=== PATIENT | male | born 1970 | race Caucasian/White ===

== ENCOUNTER 2018-02-19 12:10 | Inpatient (IN) | payer MEDICAID ==
[2018-02-19] MEDS ORDERED: Vancomycin 1 GM 1 GM/250 ML BAG IV STA (13:08)
[2018-02-19] MEDS ORDERED: Cefepime IV 1 gm in Dextrose 1 GM/50 ML BAG IVPB STA (13:09)
[2018-02-19 13:35] LABS: BASO % 0.4 % (0.0-2.0); EOS % 0.7 % (0.0-4.0); LYMPH # 1.1 K/uL (1.0-4.3); LYMPH % 19.3 % (20.0-40.0); MEAN CORPUSCULAR HEMOGLOBIN 27.1 pg (27.0-31.0); MEAN CORPUSCULAR HGB CONC 32.6 g/dL (33.0-37.0); MEAN PLATELET VOLUME 8.6 fL (7.2-11.7); MONO # 0.8 K/uL (0.0-0.8); MONO % 13.4 % (0.0-10.0); NEUT # 3.9 K/uL (1.8-7.0); NEUT % 66.2 % (50.0-75.0); RBC 3.32 Mil/uL (4.40-5.90); WHITE BLOOD COUNT 5.9 K/uL (4.8-10.8)
--- NOTE | 2018-02-19 13:36 | C.PDOC ---
History Of Present Illness Patient presents to ED c/o B/L LEs swelling for > 1 week, as well as left foot wound/pain for approx 1 week. He admits to occasional SOB, particularly when he lays down at night. He was seen by new PMD, Dr. Deann Busch, 1 week ago and started on Lasix PO without significant relief of edema. He admits to chills. Patient denies chest pain, abdominal pain, nausea/vomiting/diarrhea. PMHx of DM II, HTN, CHF. Time Seen by Provider: 02/19/18 12:34 Chief Complaint (Nursing): Shortness Of Breath History Per: Patient History/Exam Limitations: no limitations Onset/Duration Of Symptoms: Days (1 week ) Current Symptoms Are (Timing): Still Present Current Respiratory Medications: See Home Med List Severity: Moderate Past Medical History Reviewed: Historical Data, Nursing Documentation, Vital Signs Vital Signs: Last Vital Signs Temp 98.1 F 02/20/18 07:00 Pulse 67 02/20/18 07:00 Resp 20 02/20/18 07:00 BP 150/73 02/20/18 07:00 Pulse Ox 97 02/20/18 07:00 - Medical History PMH: CHF, Diabetes, HTN Family History: States: No Known Family Hx - Social History Hx Alcohol Use: No Hx Substance Use: No Review Of Systems Constitutional: Positive for: Chills Cardiovascular: Positive for: Edema (B/L LEs). Negative for: Chest Pain, Palpitations Respiratory: Positive for: Shortness of Breath. Negative for: Cough Gastrointestinal: Negative for: Nausea, Vomiting, Abdominal Pain, Diarrhea Musculoskeletal: Positive for: Foot Pain (left foot pain, redness, swelling ) Physical Exam - Physical Exam Appears: Well, Non-toxic, No Acute Distress Skin: Other (see extremity exam) Eye(s): bilateral: Normal Inspection Oral Mucosa: Moist Cardiovascular: Rhythm Regular Respiratory: Normal Breath Sounds, No Rales, No Rhonchi, No Wheezing Gastrointestinal/Abdominal: Normal Exam, Bowel Sounds, Soft, No Tenderness Extremity: Pedal Edema (+2 pitting edema B/L LEs), Capillary Refill (< 2 sec all digits ), Other (medial aspect left foot (at base of first metatarsal), approx 2-3cm area of swelling/abscess with surrounding erythema) Extremity: Bilateral: Normal ROM Pulses: Left Dorsalis Pedis: Normal, Right Dorsalis Pedis: Normal Neurological/Psych: Oriented x3, Normal Sensation ED Course And Treatment - Laboratory Results Result Diagrams: 02/19/18 13:30 02/19/18 13:30 ECG: Interpreted By Me, Viewed By Me (NSR 72 bpm, left axis deviation, QTc 479ms , T wave inversion I, V5, V6, no acute ST changes) ECG Interpretation: Abnormal O2 Sat by Pulse Oximetry: 95 (RA) Pulse Ox Interpretation: Normal - Radiology CXR: Interpreted by Me, Viewed By Me CXR Interpretation: Yes: Other (mild pulmonary congestion) - Other Rad left foot xray X-Ray: Interpreted by Me, Viewed By Me (soft tissue abscess?, no fx, no periosteal changes) Progress Note: Blood work, CXR, Foot Xray ordered and reviewed. Patient given IV Vancomycin and IV Cefepime. Podaitry resident spoken with, will come and evaluate patient. Patient has mild SOB only with lying flat - will give only low dose Lasix since Bun/Cr also elevated. 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 Disposition - Disposition Disposition: HOSPITALIZED Disposition Time: 14:59 Condition: STABLE - Clinical Impression Clinical Impression: CHF exacerbation, Cellulitis of left foot, Foot abscess, left, Renal insufficiency Decision To Admit - Pt Status Changed To: Hospital Disposition Of: Inpatient - Admit Certification Admit to Inpatient:: After my assessment, the patient will require hospitalization for at least two midnights. This is because of the severity of symptoms shown, intensity of services needed, and/or the medical risk in this patient being treated as an outpatient. - InPatient: Physician Admission Certification: I certify that this patient requires 2 or more midnights of care for the following reason:: see notes - . Bed Request Type: Telemetry Admitting Physician: Wendi Brambila Patient Diagnosis: Acute exacerbation of CHF (congestive heart failure), Cellulitis of left foot, Abscess of left foot, Renal insufficiency
[2018-02-19 13:42] LABS: VENOUS BLOOD GAS BASE EXCESS -3.1 mmol/L (0.0-2.0); VENOUS BLOOD GAS PCO2 35 mmHg (40-60); VENOUS BLOOD GAS PO2 28 mm/Hg (30-55); VENOUS BLOOD PH 7.39 (7.32-7.43)
[2018-02-19 13:42] LABS: INR 1.7; PROTHROMBIN TIME 18.1 SECONDS (9.7-12.2)
[2018-02-19 13:47] LABS: ALB/GLOB RATIO 0.9 (1.0-2.1); ALBUMIN 3.6 g/dL (3.5-5.0); CALCIUM 8.4 mg/dl (8.6-10.4)
[2018-02-19 13:59] LABS: CK-MB 1.74 ng/mL (0.0-3.38); TROPONIN I 0.038 ng/mL (0.00-0.120)
--- NOTE | 2018-02-19 14:04 | RAD ---
PROCEDURE: CHEST RADIOGRAPH, 1 VIEW HISTORY: SOB, EDEMA COMPARISON: None available. FINDINGS: LUNGS: Mild pulmonary venous congestive changes. PLEURA: No pneumothorax or pleural fluid seen. CARDIOVASCULAR: Normal. OSSEOUS STRUCTURES: No significant abnormalities. VISUALIZED UPPER ABDOMEN: Normal. OTHER FINDINGS: None. IMPRESSION: Mild pulmonary venous congestive changes.
[2018-02-19] MEDS ORDERED: Vancomycin 1 gm/NS 200 ml 1 GM/200 ML BAG IVPB STA (14:06)
[2018-02-19] MEDS ORDERED: Vancomycin 1 gm/NS 200 ml 1 GM/200 ML BAG IVPB SCH (14:15)
--- NOTE | 2018-02-19 14:28 | CP.PCM.CON ---
History of Present Illness - History of Present Illness History of Present Illness: Podiatry Consult Note - Dr. Montaño 48 year old male patient PMHx CHF, DM2, HTN, hx CVA seen and examined in ED concerning left foot wound. Patient hemodynamically stable and NAD. Patient states states approximately 1 week ago, he developed a blister on the side of his left great toe joint. Patient reports a history of water retention; of note patient was started on Lasix PO without significant relief of edema. Patient states the blister has increased in size over the past few days, and relates associated fever and chills, which led him to present to ED. Patient also complains of bilateral lower extremity numbness. Patient denies prior treatment. Admits to occasional SOB. Denies N/V/D/CP/dizziness. PMHx: CHF, DM2, HTN, CVA PSH: none FH: PR (father @ 41 years old), DM2 (brother and sister) SH: unemployed; 1 beer/day; 4-5 cigarettes/day for 20 years; no illicit drug use Review of Systems - Review of Systems All systems: reviewed and no additional remarkable complaints except (as per HPI ) Past Patient History - Past Social History Smoking Status: Light Smoker < 10 Cigarettes Daily - CARDIAC Hx Congestive Heart Failure: Yes Hx Hypertension: Yes - NEUROLOGICAL HX Cerebrovascular Accident: Yes - ENDOCRINE/METABOLIC Hx Diabetes Mellitus Type 2: Yes - PSYCHIATRIC Hx Substance Use: No - SURGICAL HISTORY Hx Surgeries: No - ANESTHESIA Hx Anesthesia: Yes Hx Anesthesia Reactions: No Meds Allergies/Adverse Reactions: Allergies Allergy/AdvReac Type Severity Reaction Status Date / Time No Known Allergies Allergy Unverified 02/19/18 12:30 - Medications Medications: Current Medications Vancomycin/Sodium Chloride (Vancomycin 1 Gm/Ns 200 Ml) 1 gm in 200 mls @ 166.667 mls/hr IVPB STAT STA PRN Reason: Protocol Stop: 02/19/18 15:17 Physical Exam - Constitutional Appears: Well, Non-toxic, No Acute Distress - Extremities Exam Additional comments: VASC: DP pulses palpable 1/4 b/l. L PT nonpalpable secondary to edema. R PT palpable 2/4. CFT <3 seconds to all digits x10. Temperature gradient warm to warm b/l; no increase in warmth to areas of erythema L foot. Nonpitting edema present to left foot at areas of erythema. +3 pitting edema to bilateral LE. NEURO: Gross sensation diminished bilaterally. DERM: RLE=No open lesions noted. Severe xerosis noted to plantar foot. LLE=Bullae noted to plantarmedial aspect of left 1st met head measuring approximately 5 x 6cm with hyperkeratotic tissue plantarly; erythema noted periwound extending proximally into midfoot; fluctuance present at bullae; malodor present. No open lesions noted. No extension into subcutaneous tissue. Severe xerosis noted to plantar foot. ORTHO: No pain on palpation noted. Muscle strenth 5/5 for all dorsiflexors, plantarflexors, inverters, and everters b/l. - Neurological Exam Neurological exam: Alert, Oriented x3 - Psychiatric Exam Psychiatric exam: Normal Affect, Normal Mood Results - Vital Signs Recent Vital Signs: Last Vital Signs Temp 99.7 F H 02/19/18 12:26 Pulse 71 02/19/18 13:35 Resp 21 02/19/18 13:35 BP 138/62 02/19/18 13:35 Pulse Ox 95 02/19/18 13:55 - Labs Result Diagrams: 02/19/18 13:30 02/19/18 13:30 Labs: Laboratory Results - last 24 hr 02/19/18 02/19/18 02/19/18 13:30 13:30 13:30 WBC 5.9 RBC 3.32 L Hgb 9.0 L Hct 27.6 L MCV 83.0 MCH 27.1 MCHC 32.6 L RDW 16.0 H Plt Count 103 L MPV 8.6 Neut % (Auto) 66.2 Lymph % (Auto) 19.3 L Hancock % (Auto) 13.4 H Eos % (Auto) 0.7 Baso % (Auto) 0.4 Neut # (Auto) 3.9 Lymph # (Auto) 1.1 Hancock # (Auto) 0.8 Eos # (Auto) 0.0 Baso # (Auto) 0.0 PT 18.1 H INR 1.7 APTT 38 H pO2 VBG pH VBG pCO2 VBG HCO3 VBG Total CO2 VBG O2 Sat (Calc) VBG Base Excess VBG Potassium Glucose Lactate Sodium 128 L Potassium 4.3 Chloride 97 L Carbon Dioxide 19 L Anion Gap 16 BUN 25 H Creatinine 1.6 H Est GFR ( Amer) 57 Est GFR (Non-Af Amer) 47 POC Glucose (mg/dL) Random Glucose 110 Calcium 8.4 L Total Bilirubin 0.9 AST 41 ALT 29 Alkaline Phosphatase 78 Total Creatine Kinase 368 H CK-MB (Mass) 1.74 Troponin I 0.0380 NT-Pro-B Natriuret Pep 6790 H Total Protein 7.5 Albumin 3.6 Globulin 3.8 Albumin/Globulin Ratio 0.9 L Venous Blood Potassium 02/19/18 02/19/18 13:34 13:38 WBC RBC Hgb Hct MCV MCH MCHC RDW Plt Count MPV Neut % (Auto) Lymph % (Auto) Hancock % (Auto) Eos % (Auto) Baso % (Auto) Neut # (Auto) Lymph # (Auto) Hancock # (Auto) Eos # (Auto) Baso # (Auto) PT INR APTT pO2 28 L VBG pH 7.39 VBG pCO2 35 L VBG HCO3 21.3 VBG Total CO2 22.3 VBG O2 Sat (Calc) 58.0 VBG Base Excess -3.1 L VBG Potassium 4.0 Glucose 104 Lactate 1.3 Sodium 127.0 L Potassium Chloride 100.0 Carbon Dioxide Anion Gap BUN Creatinine Est GFR ( Amer) Est GFR (Non-Af Amer) POC Glucose (mg/dL) 110 Random Glucose Calcium Total Bilirubin AST ALT Alkaline Phosphatase Total Creatine Kinase CK-MB (Mass) Troponin I NT-Pro-B Natriuret Pep Total Protein Albumin Globulin Albumin/Globulin Ratio Venous Blood Potassium 4.0 Assessment & Plan - Assessment and Plan (Free Text) Assessment: 48M PMHx CHF, DM2, HTN, hx CVA with left foot bullae + cellulitis Plan: Patient seen and evaluated in ED Discussed with attending, Dr. Montaño Tmax 99.7, WBC 5.9 f/u ESR Left foot XR reviewed: Bullae noted to medial aspect of 1st MPJ with no cortical destruction noted; awaiting final report Bedside I&D performed w/o incident; left foot wound culture obtained Left foot dressed with betadine, DSD Vancomycin/Cefepime given in ED Patient to be admitted Podiatry will follow
--- NOTE | 2018-02-19 18:40 | RAD ---
PROCEDURE: Left Foot Radiographs. HISTORY: L FOOT CELLULITIS/ABSCESS R/O OSTEO COMPARISON: No prior study available for comparison. FINDINGS: BONES: Normal. No fracture. JOINTS: Normal. SOFT TISSUES: The current study reveals what appears represent semi lunar shaped lucency presumably representing an abscess collection within the medial soft tissues at adjacent to the head of the 1st metatarsal/1st MTP joint. . There appears to be subjacent soft tissue swelling is well. No definitive destructive changes. Recommend followup MRI however poorly ostium myelitis is suspected clinically. OTHER FINDINGS: Vascular calcifications. IMPRESSION: Findings consistent with abscess collection within the medial soft tissues at the level of the head of the 1st metatarsal/MTP joint.
[2018-02-20 01:00] VITALS: RESP 20
[2018-02-20] MEDS ORDERED: Oxycodone/Acetaminophen 5/325 mg Tab PO PRN (08:09)
--- NOTE | 2018-02-20 09:06 | CP.PCM.PN ---
Subjective - Date & Time of Evaluation Date of Evaluation: 02/20/18 Time of Evaluation: 09:03 - Subjective Subjective: Lower extremity focused exam: VASC: DP pulses palpable 1/4 B/L. Left PT nonpalpable secondary to edema. Right PT palpable 2/4. CFT <3 seconds to all digits x10. Temperature gradient warm to warm b/l; no increase in warmth to areas of erythema L foot. Nonpitting edema present to left foot at areas of erythema. +2 pitting edema to bilateral lower extremities. NEURO: Gross sensation diminished B/L. DERM: RLE- No open lesions noted. Severe xerosis noted to plantar foot. LLE- Bullae noted to plantarmedial aspect of left 1st met head measuring approximately 5 x 6cm with hyperkeratotic tissue plantarly; erythema noted periwound extending proximally into midfoot. Mild fluctuance present at bullae. Mild malodor is noted. No open lesions noted. No extension into subcutaneous tissues. Moderate-severe xerosis noted to plantar foot. ORTHO: No pain on palpation noted. Muscle strength 5/5 for all dorsiflexors, plantarflexors, inverters, and everters B/L Objective - Vital Signs/Intake and Output Vital Signs (last 24 hours): Temp Pulse Resp BP Pulse Ox 98.1 F 67 20 150/73 97 02/20/18 07:00 02/20/18 07:00 02/20/18 07:00 02/20/18 07:00 02/20/18 07:00 Intake and Output: 02/20/18 02/20/18 06:59 18:59 Output Total 950 Balance -950 - Medications Medications: Current Medications Amlodipine Besylate (Norvasc) 5 mg PO DAILY [facility] Furosemide (Lasix) 20 mg PO DAILY [facility] Glyburide (Micronase) 2.5 mg PO DAILY [facility] Piperacillin Sod/Tazobactam Sod (Zosyn 2.25 Gm Iv Premix) 2.25 gm in 50 mls @ 100 mls/hr IVPB Q8 [facility] PRN Reason: Protocol Vancomycin HCl 1 gm/ Sodium (Chloride) 250 mls @ 166.7 mls/hr IVPB Q24H [facility] PRN Reason: Protocol Insulin Aspart (Novolog) 0 unit SC ACHS [facility] PRN Reason: Protocol Lisinopril (Zestril) 10 mg PO DAILY [facility] Oxycodone/Acetaminophen (Percocet 5/325 Mg Tab) 1 tab PO Q4H PRN PRN Reason: Pain, Mild (1-3) Stop: 02/23/18 08:10 Rosuvastatin Calcium (Crestor) 20 mg PO DAILY [facility] Warfarin Sodium (Coumadin) 3 mg PO DAILY [facility] - Labs Labs: 02/19/18 13:30 02/19/18 13:30 PT 18.1 SECONDS (9.7-12.2) H 02/19/18 13:30 INR 1.7 02/19/18 13:30 APTT 38 SECONDS (21-34) H 02/19/18 13:30 Assessment and Plan - Assessment and Plan (Free Text) Assessment: 48 y/o diabetic male patient with left foot medial 1st metatarsal abscess with cellulitis Plan: Patient seen and evaluated with attending, Dr. Montaño ESR 55 Left foot XR reviewed: findings consistent with abscess collection in medial soft tissues at level of 1st met head/1st MPJ Left foot abscess site cleaned with saline and dressed with betadine, DSD Will excisionally debride borders of abscess site tomorrow at bedside as there is likely underlying ulcer formation Rx MRI of LLE to further evaluate abscess Continue IV abx and pain mgt per medicine team Podiatry will continue to follow while in house
[2018-02-20] MEDS ORDERED: ROSUVASTATIN 20MG PO SCH (10:00)
[2018-02-20] MEDS: Vancomycin 1 gm/NS 200 ml 1 GM/200 ML BAG IVPB SCH (10:55)
--- NOTE | 2018-02-20 12:15 | HP ---
HISTORY OF PRESENT ILLNESS: A 48-year-old male, history of diabetes for 12 years, history of diabetic foot. The patient needs glyburide 10 mg daily. The patient had in the past, in the left foot. The patient was found to have diabetic foot. PHYSICAL EXAMINATION: GENERAL: The patient is awake, alert and oriented. VITAL SIGNS: Temperature 98, pulse 90. HEENT: Within normal limits. NECK: Supple. CHEST: Symmetrical. HEART: Regular. ABDOMEN: Soft. EXTREMITIES: There is diabetic foot in the left foot. IMPRESSION: The patient suffers from left foot. The patient given IV antibiotics, supportive care, podiatry consult. Wendi Tadeo MD
[2018-02-20] MEDS: (Novolog) Insulin Aspart, Recombinant 100 u/ml 10 ml vial SC SCH ×3 (12:18→21:51)
[2018-02-20] MEDS: Piperacill/Tazo 2.25gm in Dex 2.25 GM/50 ML BAG IVPB SCH ×2 (13:02→21:12)
--- NOTE | 2018-02-20 14:20 | CP.PCM.CON ---
History of Present Illness - History of Present Illness History of Present Illness: 48 year old male admitted with left foot wound / cellulitis / bullous lesion plantar area . Patient states states approximately 1 week ago, he developed a blister on the side of his left great toe joint. Patient reports a history of water retentionPatient states the blister has increased in size over the past few days, and relates associated fever and chills, which led him to present to ED. Patient also complains of bilateral lower extremity numbness. Patient denies prior treatment. Admits to occasional SOB. Denies N/V/D/CP/ dizziness. PMHx: CHF, DM2, HTN, CVA left weakness PSH: none FH: MD (father @ 41 years old), DM2 (brother and sister) SH: unemployed; 1 beer/day; 4-5 cigarettes/day for 20 years; no illicit drug use Review of Systems - Review of Systems All systems: reviewed and no additional remarkable complaints except - Constitutional Constitutional: As Per HPI - EENT Eyes: absent: As Per HPI, Blind Spots, Blurred Vision, Change in Vision, Decreased Night Vision, Diplopia, Discharge, Dry Eye, Exophthalmos, Floaters, Irritation, Itchy Eyes, Loss of Peripheral Vision, Pain, Photophobia, Requires Corrective Lenses, Sees Flashes, Spots in Vision, Tunnel Vision, Other Visual Disturbances, Loss of Vision, Other Ears: absent: As Per HPI, Decreased Hearing, Ear Discharge, Ear Pain, Tinnitus, Abnormal Hearing, Disequilibrium, Dizziness, Other Nose/Mouth/Throat: absent: As Per HPI, Epistaxis, Nasal Congestion, Nasal Discharge, Nasal Obstruction, Nasal Trauma, Nose Pain, Post Nasal Drip, Sinus Pain, Sinus Pressure, Bleeding Gums, Change in Voice, Dental Pain, Dry Mouth, Dysphagia, Halitosis, Hoarsness, Lip Swelling, Mouth Lesions, Mouth Pain, Odynophagia, Sore Throat, Throat Swelling, Tongue Swelling, Facial Pain, Neck Pain, Neck Mass, Other - Cardiovascular Cardiovascular: As Per HPI - Respiratory Respiratory: absent: As Per HPI, Cough, Dyspnea, Hemoptysis, Dyspnea on Exertion , Wheezing, Snoring, Stridor, Pain on Inspiration, Chest Congestion, Excessive Mucous Production, Change in Mucous Color, Pain with Coughing, Other - Gastrointestinal Gastrointestinal: absent: As Per HPI, Abdominal Pain, Belching, Bloating, Change in Bowel Habits, Change in Stool Character, Coffee Ground Emesis, Constipation, Cramping, Diarrhea, Dyspepsia, Dysphagia, Early Satiety, Excessive Flatus, Fecal Incontinence, Heartburn, Hematemesis, Hematochezia, Loose Stools, Melena, Nausea, Odynophagia, Temesmus, Vomiting, Other - Genitourinary Genitourinary: absent: As Per HPI, Change in Urinary Stream, Difficulty Urinating, Dysuria, Flank Pain, Hematuria, Pyuria, Nocturia, Urinary Incontinence, Urinary Frequency, Urinary Hesitance, Urinary Urgency, Voiding Freq/Small Amts, Freq UTI, Hx Renal/Bladder Calculi, Hx /Renal Surgery, Bladder Distension, Other - Musculoskeletal Musculoskeletal: As Per HPI - Integumentary Integumentary: As Per HPI, Skin Pain, Wounds - Neurological Neurological: As Per HPI, Sensory Deficit - Psychiatric Psychiatric: absent: As Per HPI, Abnormal Sleep Pattern, Anhedonia, Anxiety, Auditory Hallucinations, Behavioral Changes, Change in Appetite, Change in Libido, Confusion, Depression, Difficulty Concentrating, Hallucinations, Homicidal Ideation, Hopelessness, Irritability, Memory Loss, Mood Swings, Panic Attacks, Paranoia, Suicidal Ideation, Visual Hallucinations, Tactile Hallucinations, Other - Hematologic/Lymphatic Hematologic: absent: As Per HPI, Easy Bleeding, Easy Bruising, Lymphadenopathy, Other Past Patient History - Past Medical History & Family History Past Medical History?: Yes - Past Social History Smoking Status: Current Some Days Smoker - CARDIAC Hx Congestive Heart Failure: Yes Hx Hypertension: Yes - NEUROLOGICAL HX Cerebrovascular Accident: Yes - ENDOCRINE/METABOLIC Hx Diabetes Mellitus Type 2: Yes - MUSCULOSKELETAL/RHEUMATOLOGICAL Hx Falls: No - PSYCHIATRIC Hx Substance Use: No - SURGICAL HISTORY Hx Surgeries: No - ANESTHESIA Hx Anesthesia: Yes Hx Anesthesia Reactions: No Meds Allergies/Adverse Reactions: Allergies Allergy/AdvReac Type Severity Reaction Status Date / Time No Known Allergies Allergy Unverified 02/19/18 12:30 - Medications Medications: Current Medications Amlodipine Besylate (Norvasc) 5 mg PO DAILY [facility] Last Admin: 02/20/18 10:16 Dose: 5 mg Furosemide (Lasix) 20 mg PO DAILY [facility] Last Admin: 02/20/18 10:15 Dose: 20 mg Glyburide (Micronase) 2.5 mg PO DAILY [facility] Last Admin: 02/20/18 11:04 Dose: 2.5 mg Piperacillin Sod/Tazobactam Sod (Zosyn 2.25 Gm Iv Premix) 2.25 gm in 50 mls @ 100 mls/hr IVPB Q8 [facility] PRN Reason: Protocol Last Admin: 02/20/18 13:02 Dose: 100 mls/hr Vancomycin/Sodium Chloride (Vancomycin 1 Gm/Ns 200 Ml) 1 gm in 200 mls @ 133.333 mls/hr IVPB Q24H [facility] PRN Reason: Protocol Last Admin: 02/20/18 10:55 Dose: 133.333 mls/hr Insulin Aspart (Novolog) 0 unit SC ACHS [facility] PRN Reason: Protocol Last Admin: 02/20/18 12:18 Dose: Not Given Lisinopril (Zestril) 10 mg PO DAILY [facility] Last Admin: 02/20/18 10:17 Dose: 10 mg Oxycodone/Acetaminophen (Percocet 5/325 Mg Tab) 1 tab PO Q4H PRN PRN Reason: Pain, Mild (1-3) Stop: 02/23/18 08:10 Rosuvastatin Calcium (Crestor) 20 mg PO HS [facility] Warfarin Sodium (Coumadin) 3 mg PO DAILY@1800 [facility] Stop: 02/20/18 18:01 Physical Exam - Constitutional Appears: Non-toxic, Chronically Ill - Head Exam Head Exam: ATRAUMATIC, NORMAL INSPECTION, NORMOCEPHALIC - Eye Exam Eye Exam: EOMI, PERRL. absent: Scleral icterus - ENT Exam ENT Exam: Mucous Membranes Dry, Normal External Ear Exam - Neck Exam Neck exam: Negative for: Thyromegaly - Respiratory Exam Respiratory Exam: Decreased Breath Sounds, Clear to Auscultation Bilateral - Cardiovascular Exam Cardiovascular Exam: REGULAR RHYTHM, +S1, +S2 - GI/Abdominal Exam GI & Abdominal Exam: Diminished Bowel Sounds, Soft. absent: Tenderness - Rectal Exam Rectal Exam: Deferred - Exam Exam: NORMAL INSPECTION - Extremities Exam Extremities exam: Positive for: pedal edema Additional comments: Lower extremity focused exam: VASC: DP pulses palpable 1/4 B/L. Left PT nonpalpable secondary to edema. Right PT palpable 2/4. CFT <3 seconds to all digits x10. Temperature gradient warm to warm b/l; no increase in warmth to areas of erythema L foot. Nonpitting edema present to left foot at areas of erythema. +2 pitting edema to bilateral lower extremities. NEURO: Gross sensation diminished B/L. DERM: RLE- No open lesions noted. Severe xerosis noted to plantar foot. LLE- Bullae noted to plantarmedial aspect of left 1st met head measuring approximately 5 x 6cm with hyperkeratotic tissue plantarly; erythema noted periwound extending proximally into midfoot. Mild fluctuance present at bullae. Mild malodor is noted. No open lesions noted. No extension into subcutaneous tissues. Moderate-severe xerosis noted to plantar foot. ORTHO: No pain on palpation noted. Muscle strength 5/5 for all dorsiflexors, plantarflexors, inverters, and everters B/L - Back Exam Back exam: absent: CVA tenderness (L), CVA tenderness (R) - Neurological Exam Neurological exam: Alert, CN II-XII Intact, Oriented x3, Reflexes Normal - Psychiatric Exam Psychiatric exam: Normal Mood - Skin Skin Exam: Dry, Intact Results - Vital Signs Recent Vital Signs: Last Vital Signs Temp 98.1 F 02/20/18 07:00 Pulse 67 02/20/18 07:00 Resp 20 02/20/18 07:00 BP 150/76 02/20/18 10:15 Pulse Ox 95 02/20/18 10:18 - Labs Result Diagrams: 02/19/18 13:30 02/19/18 13:30 Labs: Laboratory Results - last 24 hr 02/19/18 02/19/18 02/20/18 13:30 21:14 06:42 WBC 5.9 RBC 3.32 L Hgb 9.0 L Hct 27.6 L MCV 83.0 MCH 27.1 MCHC 32.6 L RDW 16.0 H Plt Count 103 L MPV 8.6 Neut % (Auto) 66.2 Lymph % (Auto) 19.3 L Harmon % (Auto) 13.4 H Eos % (Auto) 0.7 Baso % (Auto) 0.4 Neut # (Auto) 3.9 Lymph # (Auto) 1.1 Harmon # (Auto) 0.8 Eos # (Auto) 0.0 Baso # (Auto) 0.0 Differential Comment ESR 55 H POC Glucose (mg/dL) 183 H 118 H 02/20/18 11:36 WBC RBC Hgb Hct MCV MCH MCHC RDW Plt Count MPV Neut % (Auto) Lymph % (Auto) Harmon % (Auto) Eos % (Auto) Baso % (Auto) Neut # (Auto) Lymph # (Auto) Harmon # (Auto) Eos # (Auto) Baso # (Auto) Differential Comment ESR POC Glucose (mg/dL) 124 H Assessment & Plan (1) Abscess of left foot Status: Acute (2) Acute exacerbation of CHF (congestive heart failure) Status: Acute (3) Cellulitis of left foot Status: Acute (4) Renal insufficiency Status: Acute - Assessment and Plan (Free Text) Assessment: r/o OM left foot consider mri left foot, vascular consult and cont iv antibiotics Plan: abscess foormation left foot recc: I and D , vascular eval, MRI foot to r/o OM will check Vanco levels
[2018-02-20] MEDS: ROSUVASTATIN 20MG PO SCH (21:12)
--- NOTE | 2018-02-20 23:40 | CP.PCM.CON ---
History of Present Illness - History of Present Illness History of Present Illness: Vascular Surgery Consult Note for Dr. Peguero This 48M with a PMH of DM, dilated cardiomyopathy, and CVA presents with 2 weeks of leg swelling. He reports that he had a rough patch on his right foot that got infected and peeled off. The foot lesion is being managed by podiatry who requested a consult for evaluation of vasculature. The patient denies any pain in his lower extremity with activity he reports he can walk a mile without issue. He denies any systemic symptoms such as chest pain or SOB. PMHx: CHF, DM2, HTN, CVA PSH: none FH: NC (father @ 41 years old), DM2 (brother and sister) SH: unemployed; 1 beer/day; 4-5 cigarettes/day for 20 years; no illicit drug use Review of Systems - Review of Systems All systems: reviewed and no additional remarkable complaints except - Constitutional Constitutional: absent: Anorexia, Chills - EENT Eyes: absent: Blind Spots, Blurred Vision Ears: absent: Decreased Hearing, Ear Discharge - Cardiovascular Cardiovascular: absent: Chest Pain, Dyspnea - Respiratory Respiratory: absent: Cough, Dyspnea - Gastrointestinal Gastrointestinal: absent: Bloating, Change in Stool Character, Nausea, Vomiting Past Patient History - Past Medical History & Family History Past Medical History?: Yes - Past Social History Smoking Status: Current Some Days Smoker - CARDIAC Hx Congestive Heart Failure: Yes Hx Hypertension: Yes - NEUROLOGICAL HX Cerebrovascular Accident: Yes - ENDOCRINE/METABOLIC Hx Diabetes Mellitus Type 2: Yes - MUSCULOSKELETAL/RHEUMATOLOGICAL Hx Falls: No - PSYCHIATRIC Hx Substance Use: No - SURGICAL HISTORY Hx Surgeries: No - ANESTHESIA Hx Anesthesia: Yes Hx Anesthesia Reactions: No Meds Allergies/Adverse Reactions: Allergies Allergy/AdvReac Type Severity Reaction Status Date / Time No Known Allergies Allergy Unverified 02/19/18 12:30 - Medications Medications: Current Medications Amlodipine Besylate (Norvasc) [address] [facility] Last Admin: 02/20/18 10:16 Dose: 5 mg Furosemide (Lasix) [address] [facility] Last Admin: 02/20/18 10:15 Dose: 20 mg Glyburide (Micronase) 2.[address] [facility] Last Admin: 02/20/18 11:04 Dose: 2.5 mg Piperacillin Sod/Tazobactam Sod (Zosyn 2.25 Gm Iv Premix) 2.25 gm in 50 mls @ 100 mls/hr IVPB Q8 [facility] PRN Reason: Protocol Last Admin: 02/20/18 21:12 Dose: 100 mls/hr Vancomycin/Sodium Chloride (Vancomycin 1 Gm/Ns 200 Ml) 1 gm in 200 mls @ 133.333 mls/hr IVPB Q24H [facility] PRN Reason: Protocol Last Admin: 02/20/18 10:55 Dose: 133.333 mls/hr Insulin Aspart (Novolog) 0 unit SC ACHS [facility] PRN Reason: Protocol Last Admin: 02/20/18 21:51 Dose: Not Given Lisinopril (Zestril) [address] [facility] Last Admin: 02/20/18 10:17 Dose: 10 mg Oxycodone/Acetaminophen (Percocet 5/325 Mg Tab) 1 tab PO Q4H PRN PRN Reason: Pain, Mild (1-3) Stop: 02/23/18 08:10 Rosuvastatin Calcium (Crestor) [address] [facility] Last Admin: 02/20/18 21:12 Dose: 20 mg Physical Exam - Constitutional Appears: Non-toxic, No Acute Distress - Head Exam Head Exam: ATRAUMATIC, NORMOCEPHALIC - Eye Exam Eye Exam: EOMI, Normal appearance - ENT Exam ENT Exam: Mucous Membranes Moist, Normal Exam - Respiratory Exam Respiratory Exam: NORMAL BREATHING PATTERN - Cardiovascular Exam Cardiovascular Exam: +S1, +S2 - GI/Abdominal Exam GI & Abdominal Exam: absent: Distended, Firm, Guarding, Hernia, Rigid, Soft, Tenderness - Extremities Exam Additional comments: Distal pulses not palbable, extremities warm to the touch - Neurological Exam Neurological exam: Alert, Oriented x3 - Psychiatric Exam Psychiatric exam: Normal Affect, Normal Mood - Skin Skin Exam: Dry, Intact Results - Vital Signs Recent Vital Signs: Last Vital Signs Temp 97.6 F 02/20/18 15:05 Pulse 72 02/20/18 15:46 Resp 20 02/20/18 15:05 BP 166/89 H 02/20/18 15:05 Pulse Ox 96 02/20/18 15:05 - Labs Result Diagrams: 02/19/18 13:30 02/19/18 13:30 Labs: Laboratory Results - last 24 hr 02/20/18 02/20/18 02/20/18 06:42 11:36 16:02 POC Glucose (mg/dL) 118 H 124 H 151 H 02/20/18 21:37 POC Glucose (mg/dL) 223 H Assessment & Plan - Assessment and Plan (Free Text) Assessment: 48M with lower extremity cellulitis and wound Will need CTA with ileofemoral runoff depending on renal function further recs per Dr. Marielena Curiel PGY2
[2018-02-21] MEDS: Piperacill/Tazo 2.25gm in Dex 2.25 GM/50 ML BAG IVPB SCH ×3 (05:29→21:17)
[2018-02-21 07:20] LABS: BASO % 0.5 % (0.0-2.0); EOS # 0.1 K/uL (0.0-0.7); EOS % 4.2 % (0.0-4.0); HEMOGLOBIN 9.2 g/dL (12.0-18.0); MEAN CELL VOLUME 83.2 fL (80.0-94.0); MEAN CORPUSCULAR HEMOGLOBIN 27.2 pg (27.0-31.0); MEAN CORPUSCULAR HGB CONC 32.6 g/dL (33.0-37.0); MEAN PLATELET VOLUME 8.7 fL (7.2-11.7); MONO # 0.4 K/uL (0.0-0.8); MONO % 12.6 % (0.0-10.0); NEUT # 1.8 K/uL (1.8-7.0); NEUT % 53.7 % (50.0-75.0); RBC 3.4 Mil/uL (4.40-5.90); RED CELL DISTRIBUTION WIDTH 16.4 % (11.5-14.5); WHITE BLOOD COUNT 3.4 K/uL (4.8-10.8)
[2018-02-21 07:32] LABS: INR 1.5
[2018-02-21 07:41] LABS: ALBUMIN 3.6 g/dL (3.5-5.0); ALT/SGPT 48 U/L (21-72); AST/SGOT 59 U/L (17-59); BLOOD UREA NITROGEN 22 mg/dL (9-20); CALCIUM 8.7 mg/dl (8.6-10.4); GFR AFRICAN-AMERICAN > 60; GFR NON-AFRICAN AMERICAN 59
[2018-02-21] MEDS: (Novolog) Insulin Aspart, Recombinant 100 u/ml 10 ml vial SC SCH ×4 (08:30→21:20)
[2018-02-21] MEDS: Vancomycin 1 gm/NS 200 ml 1 GM/200 ML BAG IVPB SCH (10:19)
--- NOTE | 2018-02-21 12:02 | CP.PCM.PN ---
Subjective - Date & Time of Evaluation Date of Evaluation: 02/21/18 Time of Evaluation: 09:00 - Subjective Subjective: vascular on board MRI pending may need I and D wants to leave advised otherwise + risk for linb loss cultures pending Objective - Vital Signs/Intake and Output Vital Signs (last 24 hours): Temp Pulse Resp BP Pulse Ox 98.4 F 66 20 165/75 H 98 02/21/18 07:00 02/21/18 10:11 02/21/18 07:00 02/21/18 10:19 02/21/18 07:00 - Medications Medications: Current Medications Amlodipine Besylate (Norvasc) 5 mg PO DAILY [facility] Last Admin: 02/21/18 10:18 Dose: 5 mg Furosemide (Lasix) 20 mg PO DAILY [facility] Last Admin: 02/21/18 10:19 Dose: 20 mg Glyburide (Micronase) 2.5 mg PO DAILY [facility] Last Admin: 02/21/18 10:19 Dose: 2.5 mg Piperacillin Sod/Tazobactam Sod (Zosyn 2.25 Gm Iv Premix) 2.25 gm in 50 mls @ 100 mls/hr IVPB Q8 [facility] PRN Reason: Protocol Last Admin: 02/21/18 05:29 Dose: 100 mls/hr Vancomycin/Sodium Chloride (Vancomycin 1 Gm/Ns 200 Ml) 1 gm in 200 mls @ 133.333 mls/hr IVPB Q24H [facility] PRN Reason: Protocol Last Admin: 02/21/18 10:19 Dose: 133.333 mls/hr Insulin Aspart (Novolog) 0 unit SC ACHS [facility] PRN Reason: Protocol Last Admin: 02/21/18 08:30 Dose: Not Given Lisinopril (Zestril) 10 mg PO DAILY [facility] Last Admin: 02/21/18 10:19 Dose: 10 mg Oxycodone/Acetaminophen (Percocet 5/325 Mg Tab) 1 tab PO Q4H PRN PRN Reason: Pain, Mild (1-3) Stop: 02/23/18 08:10 Rosuvastatin Calcium (Crestor) 20 mg PO HS [facility] Last Admin: 02/20/18 21:12 Dose: 20 mg - Labs Labs: 02/21/18 07:12 02/21/18 07:12 PT 16.0 SECONDS (9.7-12.2) H 02/21/18 07:12 INR 1.5 02/21/18 07:12 APTT 38 SECONDS (21-34) H 02/21/18 07:12 - Constitutional Appears: Well - Head Exam Head Exam: ATRAUMATIC, NORMAL INSPECTION, NORMOCEPHALIC - Eye Exam Eye Exam: EOMI, Normal appearance, PERRL Pupil Exam: NORMAL ACCOMODATION, PERRL - ENT Exam ENT Exam: Mucous Membranes Moist, Normal Exam - Neck Exam Neck Exam: Full ROM, Normal Inspection. absent: Lymphadenopathy - Respiratory Exam Respiratory Exam: Clear to Ausculation Bilateral, NORMAL BREATHING PATTERN - Cardiovascular Exam Cardiovascular Exam: REGULAR RHYTHM, +S1, +S2. absent: Murmur - GI/Abdominal Exam GI & Abdominal Exam: Soft, Normal Bowel Sounds. absent: Tenderness - Rectal Exam Rectal Exam: NORMAL INSPECTION - Exam Exam: Circumcision, NORMAL INSPECTION - Extremities Exam Extremities Exam: Full ROM, Pedal Edema, Tenderness. absent: Calf Tenderness, Joint Swelling, Normal Capillary Refill, Normal Inspection Additional comments: edema ++ - Back Exam Back Exam: NORMAL INSPECTION - Neurological Exam Neurological Exam: Alert, Awake, CN II-XII Intact, Oriented x3 - Psychiatric Exam Psychiatric exam: Normal Affect, Normal Mood - Skin Skin Exam: Dry, Intact, Normal Color, Warm Assessment and Plan (1) Abscess of left foot Status: Acute (2) Acute exacerbation of CHF (congestive heart failure) Status: Acute (3) Cellulitis of left foot Status: Acute (4) Renal insufficiency Status: Acute
--- NOTE | 2018-02-21 13:27 | MRI ---
MRI left foot abscess History: X-ray dated 02/19/2018 Technique: Multi-echo multiplanar sequences were performed through the left foot without the use of intravenous contrast. Findings: Heterogeneous increased signal seen within the dorsal medial subcutaneous soft tissues of the forefoot at the level of the 1st and 2nd digits suggestive for an underlying cellulitis. More confluent ulceration and/or phlegmonous formation seen at the medial soft tissues at the level of the 1st metatarsal head. Moderate joint effusion noted at the 1st MTP joint space. Hallux valgus deformity. No gross signal changes within the visualized osseous marrow at the 1st digit to suggest an acute osteomyelitis. Minimal nonspecific patchy reactive bone marrow edema seen at the medial base of the 5th metatarsal bone. Clinical correlation. Mild fraying with increased signal at the level of the Lisfranc ligament which may represent a sprain or partial tear. Clinical correlation. Impression: 1. Heterogeneous increased signal seen within the dorsal medial subcutaneous soft tissues of the forefoot at the level of the 1st and 2nd digits suggestive for an underlying cellulitis. More confluent ulceration and/or phlegmonous formation seen at the medial soft tissues at the level of the 1st metatarsal head. Moderate joint effusion noted at the 1st MTP joint space. Hallux valgus deformity. No gross signal changes within the visualized osseous marrow at the 1st digit to suggest an acute osteomyelitis. 2. Mild nonspecific patchy reactive bone marrow edema seen at the medial base of the 5th metatarsal bone. Clinical correlation. 3. Mild fraying with increased signal at the level of the Lisfranc ligament which may represent a sprain or partial tear. Clinical correlation.
--- NOTE | 2018-02-21 14:32 | CP.PCM.PN ---
Subjective - Date & Time of Evaluation Date of Evaluation: 02/21/18 Time of Evaluation: 11:30 - Subjective Subjective: Podiatry Progress note: Dr. Montaño 48 year old male patient was seen and evaluated at bedside for left plantar 1st MTPJ wound. Patient is AAOx3 and appears in NAD. Denies of any acute overnight events. Reports that he is feeling well today. No recent F/N/V/C/SOB/CP/ headache. No other pedal complains. Objective - Vital Signs/Intake and Output Vital Signs (last 24 hours): Temp Pulse Resp BP Pulse Ox 98.4 F 73 20 165/75 H 98 02/21/18 07:00 02/21/18 12:00 02/21/18 07:00 02/21/18 10:19 02/21/18 07:00 - Medications Medications: Current Medications Amlodipine Besylate (Norvasc) 5 mg PO DAILY [facility] Last Admin: 02/21/18 10:18 Dose: 5 mg Furosemide (Lasix) 20 mg PO DAILY [facility] Last Admin: 02/21/18 10:19 Dose: 20 mg Glyburide (Micronase) 2.5 mg PO DAILY [facility] Last Admin: 02/21/18 10:19 Dose: 2.5 mg Piperacillin Sod/Tazobactam Sod (Zosyn 2.25 Gm Iv Premix) 2.25 gm in 50 mls @ 100 mls/hr IVPB Q8 [facility] PRN Reason: Protocol Last Admin: 02/21/18 05:29 Dose: 100 mls/hr Vancomycin/Sodium Chloride (Vancomycin 1 Gm/Ns 200 Ml) 1 gm in 200 mls @ 133.333 mls/hr IVPB Q24H [facility] PRN Reason: Protocol Last Admin: 02/21/18 10:19 Dose: 133.333 mls/hr Insulin Aspart (Novolog) 0 unit SC ACHS [facility] PRN Reason: Protocol Last Admin: 02/21/18 12:30 Dose: 1 units Lisinopril (Zestril) 10 mg PO DAILY [facility] Last Admin: 02/21/18 10:19 Dose: 10 mg Oxycodone/Acetaminophen (Percocet 5/325 Mg Tab) 1 tab PO Q4H PRN PRN Reason: Pain, Mild (1-3) Stop: 02/23/18 08:10 Rosuvastatin Calcium (Crestor) 20 mg PO HS [facility] Last Admin: 02/20/18 21:12 Dose: 20 mg - Labs Labs: 02/21/18 07:12 02/21/18 07:12 PT 16.0 SECONDS (9.7-12.2) H 02/21/18 07:12 INR 1.5 02/21/18 07:12 APTT 38 SECONDS (21-34) H 02/21/18 07:12 - Constitutional Appears: Well, Non-toxic, No Acute Distress - Extremities Exam Additional comments: Lower extremity focused exam: VASC: DP pulses palpable 1/4 B/L. Left PT nonpalpable secondary to edema. Right PT palpable 2/4. CFT <3 seconds to all digits x10. Temperature gradient warm to warm b/l; Nonpitting edema present to left foot at areas of erythema. +2 pitting edema to bilateral lower extremities. NEURO: Gross sensation diminished B/L. DERM: RLE- No open lesions noted. Severe xerosis noted to plantar foot. LLE- Wound measuring approx. 5.0 cm x 6.0 cm noted on the plantarmedial aspect of left 1st met head with epidermal layer shedding medially; erythema noted periwound extending proximally into midfoot which appears to be resolving from marked area. tom-wound maceration, no active drainage, no fluctuance present. no Mild malodor is noted. No other open lesions noted. No extension into subcutaneous tissues. Moderate-severe xerosis noted to plantar foot. ORTHO: No pain on palpation noted. Muscle strength 5/5 for all dorsiflexors, plantarflexors, inverters, and everters B/L - Neurological Exam Neurological Exam: Alert, Awake, Oriented x3 - Psychiatric Exam Psychiatric exam: Normal Affect, Normal Mood Assessment and Plan - Assessment and Plan (Free Text) Assessment: 48 y/o diabetic male patient with left foot medial 1st metatarsal abscess with cellulitis Plan: Patient seen and evaluated Pln discussed with attending, Dr. Montaño ESR 50 Pre-bedside I&D Left foot XR reviewed: findings consistent with abscess collection in medial soft tissues at level of 1st met head/1st MPJ MRI reviewed: Not suggestive of acute OM Left foot cleaned with saline and dressed with betadine, DSD Continue IV abx and pain mgt per medicine team Patient is able to FWB in a surgical shoe Educated to remain off his feet whenever possible Podiatry will continue to follow while in house
[2018-02-21 15:55] LABS: U CREAT 24HOUR URINE 1254.5 mg/24hr (800-2800); URINE CREATININE 38.6 mg/dL
[2018-02-21] MEDS ORDERED: Iodixanol 320 mg/ml 150 ml Bottle IV ONE (16:18)
--- NOTE | 2018-02-21 16:46 | CP.PCM.PN ---
Subjective - Date & Time of Evaluation Date of Evaluation: 02/21/18 Time of Evaluation: 16:44 - Subjective Subjective: Internal Medicine Progress Note - Dr Tadeo Service Patient seen and examined at bedside. Per nursing no acute events overnight. Patient is doing well, offers no complaints at this time. Denies headaches, dizziness, cp, palpitations, sob, abdominal pain, urinary symptoms, changes in bowel habits. Objective - Vital Signs/Intake and Output Vital Signs (last 24 hours): Temp Pulse Resp BP Pulse Ox 98.4 F 73 20 165/75 H 98 02/21/18 07:00 02/21/18 12:00 02/21/18 07:00 02/21/18 10:19 02/21/18 07:00 Intake and Output: 02/21/18 02/21/18 06:59 18:59 Intake Total 750 Output Total 750 Balance 0 - Medications Medications: Current Medications Amlodipine Besylate (Norvasc) 5 mg PO DAILY [facility] Last Admin: 02/21/18 10:18 Dose: 5 mg Furosemide (Lasix) 20 mg PO DAILY [facility] Last Admin: 02/21/18 10:19 Dose: 20 mg Glyburide (Micronase) 2.5 mg PO DAILY [facility] Last Admin: 02/21/18 10:19 Dose: 2.5 mg Piperacillin Sod/Tazobactam Sod (Zosyn 2.25 Gm Iv Premix) 2.25 gm in 50 mls @ 100 mls/hr IVPB Q8 [facility] PRN Reason: Protocol Last Admin: 02/21/18 14:50 Dose: 100 mls/hr Vancomycin/Sodium Chloride (Vancomycin 1 Gm/Ns 200 Ml) 1 gm in 200 mls @ 133.333 mls/hr IVPB Q24H [facility] PRN Reason: Protocol Last Admin: 02/21/18 10:19 Dose: 133.333 mls/hr Insulin Aspart (Novolog) 0 unit SC ACHS [facility] PRN Reason: Protocol Last Admin: 02/21/18 12:30 Dose: 1 units Lisinopril (Zestril) 10 mg PO DAILY [facility] Last Admin: 02/21/18 10:19 Dose: 10 mg Oxycodone/Acetaminophen (Percocet 5/325 Mg Tab) 1 tab PO Q4H PRN PRN Reason: Pain, Mild (1-3) Stop: 02/23/18 08:10 Rosuvastatin Calcium (Crestor) 20 mg PO HS [facility] Last Admin: 02/20/18 21:12 Dose: 20 mg - Labs Labs: 02/21/18 07:12 02/21/18 07:12 PT 16.0 SECONDS (9.7-12.2) H 02/21/18 07:12 INR 1.5 02/21/18 07:12 APTT 38 SECONDS (21-34) H 02/21/18 07:12 - Constitutional Appears: Non-toxic, No Acute Distress - Head Exam Head Exam: ATRAUMATIC, NORMAL INSPECTION, NORMOCEPHALIC - Eye Exam Eye Exam: EOMI, Normal appearance Pupil Exam: NORMAL ACCOMODATION - ENT Exam ENT Exam: Mucous Membranes Moist - Respiratory Exam Respiratory Exam: Clear to Ausculation Bilateral, NORMAL BREATHING PATTERN. absent: Rales, Rhonchi, Wheezes - Cardiovascular Exam Cardiovascular Exam: REGULAR RHYTHM, +S1, +S2 - GI/Abdominal Exam GI & Abdominal Exam: Soft. absent: Guarding, Rigid, Tenderness - Extremities Exam Extremities Exam: Full ROM Additional comments: left plantar 1st MTPJ wound - Neurological Exam Neurological Exam: Alert, Awake, Oriented x3 - Psychiatric Exam Psychiatric exam: Normal Affect, Normal Mood - Skin Skin Exam: Dry, Normal Color, Warm Assessment and Plan - Assessment and Plan (Free Text) Assessment: A/P: Patient is a 48 year old male with past medical history of Diabetes Mellitus, CHF, HTN, CVA presents to the ED for bilateral lower extremity swelling and left foot wound pain > 1 week. Patient found to have lower extremity cellulitis/wound infection. Left foot medial 1st metatarsal abscess with Cellulitis -Stable, afebrile -Foot Xray: soft tissue abscess (see full report) -Antibiotics: Vancomycin 1gm daily and Zosyn 2.25 Q8H -Wound cultures growing gram positive cocci -Procalcitonin 16.08, ESR and CRP elevated -F/U Lower extremity MRI to r/o osteomyelitis -ID on consult help appreciated -General surgery on consult, r/o PVD -F/U arterial dopplers and angiography abdomen Hypertension -Increased Norvasc 10mg PO daily -Lasix 20mg PO daily -Lisinopril 10mg PO daily History of Diabetes Mellitus -Glyburide 2.5mg PO daily -Insulin sliding scale -Accuchecks ACHS Hyperlipidemia -Crestor 20mg PO HS GI/DVT ppx: -No GI ppx indicated at this time -Lovenox 40mg SC daily Plan discussed with Dr Shwetha Vidales DO PGY-2
[2018-02-21] MEDS: ROSUVASTATIN 20MG PO SCH (21:17)
--- NOTE | 2018-02-21 23:24 | CARD ---
APPROVED REPORT EKG Measurement Heart [id number] <Conclusion> Normal sinus rhythm ST & T wave abnormality, consider lateral ischemia Prolonged QT Abnormal ECG
[2018-02-22] MEDS: Piperacill/Tazo 2.25gm in Dex 2.25 GM/50 ML BAG IVPB SCH ×2 (05:40→14:13)
[2018-02-22 07:15] LABS: BASO % 0.6 % (0.0-2.0); EOS # 0.2 K/uL (0.0-0.7); EOS % 4.4 % (0.0-4.0); HEMOGLOBIN 9.3 g/dL (12.0-18.0); LYMPH # 1.2 K/uL (1.0-4.3); LYMPH % 32.1 % (20.0-40.0); MEAN CELL VOLUME 82.1 fL (80.0-94.0); MEAN CORPUSCULAR HEMOGLOBIN 26.7 pg (27.0-31.0); MEAN CORPUSCULAR HGB CONC 32.5 g/dL (33.0-37.0); MEAN PLATELET VOLUME 8.3 fL (7.2-11.7); MONO # 0.4 K/uL (0.0-0.8); NEUT # 1.9 K/uL (1.8-7.0); NEUT % 51.9 % (50.0-75.0); NRBC % 0.1 % (0.0-2.0); RBC 3.49 Mil/uL (4.40-5.90); RED CELL DISTRIBUTION WIDTH 15.8 % (11.5-14.5); WHITE BLOOD COUNT 3.6 K/uL (4.8-10.8)
[2018-02-22 07:27] LABS: INR 1.4; PROTHROMBIN TIME 15.7 SECONDS (9.7-12.2)
[2018-02-22 07:42] LABS: ALBUMIN 3.8 g/dL (3.5-5.0); ALT/SGPT 49 U/L (21-72); AST/SGOT 62 U/L (17-59); BLOOD UREA NITROGEN 15 mg/dL (9-20); CALCIUM 8.7 mg/dl (8.6-10.4); GFR AFRICAN-AMERICAN > 60; GFR NON-AFRICAN AMERICAN > 60
[2018-02-22] MEDS: (Novolog) Insulin Aspart, Recombinant 100 u/ml 10 ml vial SC SCH ×2 (08:06→12:30)
--- NOTE | 2018-02-22 08:34 | CP.PCM.PN ---
Subjective - Date & Time of Evaluation Date of Evaluation: 02/22/18 Time of Evaluation: 08:34 - Subjective Subjective: Internal Medicine Progress Note - Dr Tadeo Service Patient seen and examined at bedside. Per nursing no acute events overnight. Patient is doing well, offers no complaints at this time. Patient wants to go home. Denies fevers, chills, headaches, dizziness, cp, palpitations, sob, abdominal pain, urinary symptoms, changes in bowel habits. Objective - Vital Signs/Intake and Output Vital Signs (last 24 hours): Temp Pulse Resp BP Pulse Ox 98.0 F 65 20 165/82 H 99 02/22/18 06:10 02/22/18 06:10 02/22/18 06:10 02/22/18 06:10 02/22/18 06:10 - Medications Medications: Current Medications Amlodipine Besylate (Norvasc) 10 mg PO DAILY [facility] Enoxaparin Sodium (Lovenox) 40 mg SC DAILY [facility] Furosemide (Lasix) 20 mg PO DAILY [facility] Last Admin: 02/21/18 10:19 Dose: 20 mg Glyburide (Micronase) 2.5 mg PO DAILY [facility] Last Admin: 02/21/18 10:19 Dose: 2.5 mg Piperacillin Sod/Tazobactam Sod (Zosyn 2.25 Gm Iv Premix) 2.25 gm in 50 mls @ 100 mls/hr IVPB Q8 [facility] PRN Reason: Protocol Last Admin: 02/22/18 05:40 Dose: 100 mls/hr Vancomycin/Sodium Chloride (Vancomycin 1 Gm/Ns 200 Ml) 1 gm in 200 mls @ 133.333 mls/hr IVPB Q24H [facility] PRN Reason: Protocol Last Admin: 02/21/18 10:19 Dose: 133.333 mls/hr Insulin Aspart (Novolog) 0 unit SC ACHS [facility] PRN Reason: Protocol Last Admin: 02/22/18 08:06 Dose: Not Given Lisinopril (Zestril) 10 mg PO DAILY [facility] Last Admin: 02/21/18 10:19 Dose: 10 mg Oxycodone/Acetaminophen (Percocet 5/325 Mg Tab) 1 tab PO Q4H PRN PRN Reason: Pain, Mild (1-3) Stop: 02/23/18 08:10 Rosuvastatin Calcium (Crestor) 20 mg PO HS [facility] Last Admin: 02/21/18 21:17 Dose: 20 mg - Labs Labs: 02/22/18 06:57 02/22/18 06:57 PT 15.7 SECONDS (9.7-12.2) H 02/22/18 06:57 INR 1.4 02/22/18 06:57 APTT 40 SECONDS (21-34) H 02/22/18 06:57 - Additional Findings Additional findings: - Constitutional Appears: Non-toxic, No Acute Distress - Head Exam Head Exam: ATRAUMATIC, NORMAL INSPECTION, NORMOCEPHALIC - Eye Exam Eye Exam: EOMI, Normal appearance Pupil Exam: NORMAL ACCOMODATION - ENT Exam ENT Exam: Mucous Membranes Moist - Respiratory Exam Respiratory Exam: Clear to Ausculation Bilateral, NORMAL BREATHING PATTERN. absent: Rales, Rhonchi, Wheezes - Cardiovascular Exam Cardiovascular Exam: REGULAR RHYTHM, +S1, +S2 - GI/Abdominal Exam GI & Abdominal Exam: Soft. absent: Guarding, Rigid, Tenderness - Extremities Exam Extremities Exam: Full ROM Additional comments: left plantar 1st MTPJ wound dressing clean dry intact - Neurological Exam Neurological Exam: Alert, Awake, Oriented x3 - Psychiatric Exam Psychiatric exam: Normal Affect, Normal Mood - Skin Skin Exam: Dry, Normal Color, Warm Assessment and Plan - Assessment and Plan (Free Text) Assessment: A/P: Patient is a 48 year old male with past medical history of Diabetes Mellitus, CHF, HTN, CVA presents to the ED for bilateral lower extremity swelling and left foot wound pain > 1 week. Patient found to have lower extremity cellulitis/wound infection. Left foot medial 1st metatarsal abscess with Cellulitis -Stable, afebrile -Foot Xray: soft tissue abscess (see full report) -Antibiotics: Vancomycin 1gm daily and Zosyn 2.25 Q8H -Wound cultures growing staph auereus, resistent to penicillin -Procalcitonin 16.08, ESR and CRP elevated -Lower extremity MRI negative for osteomyelitis -ID on consult help appreciated -General surgery on consult, r/o PVD -F/U arterial dopplers and angiography abdomen Hypertension -Continue Norvasc 10mg PO daily -Lasix 20mg PO daily -Lisinopril 10mg PO daily History of Diabetes Mellitus -Glyburide 2.5mg PO daily -Insulin sliding scale -Accuchecks ACHS Hyperlipidemia -Crestor 20mg PO HS GI/DVT ppx: -No GI ppx indicated at this time -Lovenox 40mg SC daily DISPO: Patient is cleared for discharge home. Patient to follow up with Dr Montaño (Podiatry) within one week. Patient was prescribed Keflex 500mg TID x 1 week. Take medications as prescribed. Follow up with PMD within 1 week. Plan discussed with Dr Shwetha Vidales DO PGY-2
[2018-02-22] MEDS ORDERED: Enoxaparin 40 mg Syringe SC SCH (10:00)
[2018-02-22] MEDS: Vancomycin 1 gm/NS 200 ml 1 GM/200 ML BAG IVPB SCH (10:31)
--- NOTE | 2018-02-22 11:09 | CP.PCM.PN ---
Subjective - Date & Time of Evaluation Date of Evaluation: 02/22/18 Time of Evaluation: 11:01 - Subjective Subjective: 48M presenting with left lower extremity wound and cellulitis s/p CTA pending report. Pt denies any pain in the left lower extremity. Ambulating. Denies n/v/d , CP, SOB, urinary symptoms. Objective - Vital Signs/Intake and Output Vital Signs (last 24 hours): Temp Pulse Resp BP Pulse Ox 97.8 F 66 20 143/72 96 02/22/18 07:10 02/22/18 07:10 02/22/18 07:10 02/22/18 10:26 02/22/18 07:10 - Medications Medications: Current Medications Amlodipine Besylate (Norvasc) 10 mg PO DAILY [facility] Last Admin: 02/22/18 10:25 Dose: 10 mg Enoxaparin Sodium (Lovenox) 40 mg SC DAILY [facility] Last Admin: 02/22/18 10:27 Dose: 40 mg Furosemide (Lasix) 20 mg PO DAILY [facility] Last Admin: 02/22/18 10:26 Dose: 20 mg Glyburide (Micronase) 2.5 mg PO DAILY [facility] Last Admin: 02/22/18 10:26 Dose: 2.5 mg Piperacillin Sod/Tazobactam Sod (Zosyn 2.25 Gm Iv Premix) 2.25 gm in 50 mls @ 100 mls/hr IVPB Q8 [facility] PRN Reason: Protocol Last Admin: 02/22/18 05:40 Dose: 100 mls/hr Vancomycin/Sodium Chloride (Vancomycin 1 Gm/Ns 200 Ml) 1 gm in 200 mls @ 133.333 mls/hr IVPB Q24H [facility] PRN Reason: Protocol Last Admin: 02/22/18 10:31 Dose: 133.333 mls/hr Insulin Aspart (Novolog) 0 unit SC ACHS [facility] PRN Reason: Protocol Last Admin: 02/22/18 08:06 Dose: Not Given Lisinopril (Zestril) 10 mg PO DAILY [facility] Last Admin: 02/22/18 10:26 Dose: 10 mg Oxycodone/Acetaminophen (Percocet 5/325 Mg Tab) 1 tab PO Q4H PRN PRN Reason: Pain, Mild (1-3) Stop: 02/23/18 08:10 Rosuvastatin Calcium (Crestor) 20 mg PO HS [facility] Last Admin: 02/21/18 21:17 Dose: 20 mg - Labs Labs: 02/22/18 06:57 02/22/18 06:57 PT 15.7 SECONDS (9.7-12.2) H 02/22/18 06:57 INR 1.4 02/22/18 06:57 APTT 40 SECONDS (21-34) H 02/22/18 06:57 Assessment and Plan - Assessment and Plan (Free Text) Assessment: 48M with lower extremity cellulitis and wound Plan: CTA showed patent arteries with no occlusion No further surgical intervention needed at this time Please reconsult surgery as needed d/w Dr. Marielena Siegel PGY-1
--- NOTE | 2018-02-22 12:07 | CP.PCM.PN ---
Subjective - Date & Time of Evaluation Date of Evaluation: 02/22/18 Time of Evaluation: 12:04 - Subjective Subjective: Podiatry Progress note: Dr. Montaño 48 year old male patient was seen and evaluated at bedside for left plantar 1st MTPJ wound. Patient is AAOx3 and appears in NAD. Denies of any acute overnight events. Denies of any pain to the foot today. Reports that he is feeling well today. No recent F/N/V/C/SOB/CP/headache. No other pedal complains. Objective - Vital Signs/Intake and Output Vital Signs (last 24 hours): Temp Pulse Resp BP Pulse Ox 97.8 F 69 20 143/72 96 02/22/18 07:10 02/22/18 11:48 02/22/18 07:10 02/22/18 10:26 02/22/18 07:10 Intake and Output: 02/22/18 02/22/18 06:59 18:59 Intake Total 200 Balance 200 - Medications Medications: Current Medications Amlodipine Besylate (Norvasc) 10 mg PO DAILY [facility] Last Admin: 02/22/18 10:25 Dose: 10 mg Enoxaparin Sodium (Lovenox) 40 mg SC DAILY [facility] Last Admin: 02/22/18 10:27 Dose: 40 mg Furosemide (Lasix) 20 mg PO DAILY [facility] Last Admin: 02/22/18 10:26 Dose: 20 mg Glyburide (Micronase) 2.5 mg PO DAILY [facility] Last Admin: 02/22/18 10:26 Dose: 2.5 mg Piperacillin Sod/Tazobactam Sod (Zosyn 2.25 Gm Iv Premix) 2.25 gm in 50 mls @ 100 mls/hr IVPB Q8 [facility] PRN Reason: Protocol Last Admin: 02/22/18 05:40 Dose: 100 mls/hr Vancomycin/Sodium Chloride (Vancomycin 1 Gm/Ns 200 Ml) 1 gm in 200 mls @ 133.333 mls/hr IVPB Q24H [facility] PRN Reason: Protocol Last Admin: 02/22/18 10:31 Dose: 133.333 mls/hr Insulin Aspart (Novolog) 0 unit SC ACHS [facility] PRN Reason: Protocol Last Admin: 02/22/18 08:06 Dose: Not Given Lisinopril (Zestril) 10 mg PO DAILY [facility] Last Admin: 02/22/18 10:26 Dose: 10 mg Oxycodone/Acetaminophen (Percocet 5/325 Mg Tab) 1 tab PO Q4H PRN PRN Reason: Pain, Mild (1-3) Stop: 02/23/18 08:10 Rosuvastatin Calcium (Crestor) 20 mg PO HS [facility] Last Admin: 02/21/18 21:17 Dose: 20 mg - Labs Labs: 02/22/18 06:57 02/22/18 06:57 PT 15.7 SECONDS (9.7-12.2) H 02/22/18 06:57 INR 1.4 02/22/18 06:57 APTT 40 SECONDS (21-34) H 02/22/18 06:57 - Constitutional Appears: Well, Non-toxic, No Acute Distress - Extremities Exam Additional comments: Lower extremity focused exam: VASC: DP pulses palpable 1/4 B/L. Left PT nonpalpable secondary to edema. Right PT palpable 2/4. CFT <3 seconds to all digits x10. Temperature gradient warm to warm b/l; Nonpitting edema present to left foot at areas of erythema. +2 pitting edema to bilateral lower extremities. NEURO: Gross sensation diminished B/L. DERM: RLE- No open lesions noted. Severe xerosis noted to plantar foot. LLE- Wound measuring approx. 5.0 cm x 6.0 cm noted on the plantarmedial aspect of left 1st met head with epidermal layer shedding medially; erythema noted periwound extending proximally into midfoot appears to be mostly resolved at this time. tom-wound maceration decreasing, no active drainage, no fluctuance present. no malodor is noted. No other open lesions noted. No extension into subcutaneous tissues. Moderate-severe xerosis noted to plantar foot. ORTHO: No pain on palpation noted. Muscle strength 5/5 for all dorsiflexors, plantarflexors, inverters, and everters B/L - Neurological Exam Neurological Exam: Alert, Awake, Oriented x3 - Psychiatric Exam Psychiatric exam: Normal Affect, Normal Mood Assessment and Plan - Assessment and Plan (Free Text) Assessment: 48 year old diabetic male patient with left foot medial 1st metatarsal abscess with cellulitis Plan: Patient seen and evaluated Plan discussed with attending, Dr. Montaño CRP, Procalcitonin - elevated (7/2) Pre-bedside I&D Left foot XR reviewed: findings consistent with abscess collection in medial soft tissues at level of 1st met head/1st MPJ MRI reviewed: Not suggestive of acute OM Left foot cleaned with saline and dressed with betadine, DSD Continue IV abx and pain mgt per medicine team Patient is able to FWB in a surgical shoe Educated to remain off his feet whenever possible Stable from podiatry standpoint - upon discharge, please follow up with attending Dr. Montaño for wound care Podiatry will continue to follow while in house
--- NOTE | 2018-02-22 12:49 | CP.PCM.PN ---
Subjective - Date & Time of Evaluation Date of Evaluation: 02/22/18 Time of Evaluation: 08:00 - Subjective Subjective: seen and evaluated at bedside for left plantar 1st MTPJ wound. Patient is AAOx3 and appears in NAD Objective - Vital Signs/Intake and Output Vital Signs (last 24 hours): Temp Pulse Resp BP Pulse Ox 97.8 F 69 20 143/72 96 02/22/18 07:10 02/22/18 11:48 02/22/18 07:10 02/22/18 10:26 02/22/18 07:10 Intake and Output: 02/22/18 02/22/18 06:59 18:59 Intake Total 200 Balance 200 - Medications Medications: Current Medications Amlodipine Besylate (Norvasc) 10 mg PO DAILY [facility] Last Admin: 02/22/18 10:25 Dose: 10 mg Enoxaparin Sodium (Lovenox) 40 mg SC DAILY [facility] Last Admin: 02/22/18 10:27 Dose: 40 mg Furosemide (Lasix) 20 mg PO DAILY [facility] Last Admin: 02/22/18 10:26 Dose: 20 mg Glyburide (Micronase) 2.5 mg PO DAILY [facility] Last Admin: 02/22/18 10:26 Dose: 2.5 mg Piperacillin Sod/Tazobactam Sod (Zosyn 2.25 Gm Iv Premix) 2.25 gm in 50 mls @ 100 mls/hr IVPB Q8 [facility] PRN Reason: Protocol Last Admin: 02/22/18 05:40 Dose: 100 mls/hr Vancomycin/Sodium Chloride (Vancomycin 1 Gm/Ns 200 Ml) 1 gm in 200 mls @ 133.333 mls/hr IVPB Q24H [facility] PRN Reason: Protocol Last Admin: 02/22/18 10:31 Dose: 133.333 mls/hr Insulin Aspart (Novolog) 0 unit SC ACHS [facility] PRN Reason: Protocol Last Admin: 02/22/18 08:06 Dose: Not Given Lisinopril (Zestril) 10 mg PO DAILY [facility] Last Admin: 02/22/18 10:26 Dose: 10 mg Oxycodone/Acetaminophen (Percocet 5/325 Mg Tab) 1 tab PO Q4H PRN PRN Reason: Pain, Mild (1-3) Stop: 02/23/18 08:10 Rosuvastatin Calcium (Crestor) 20 mg PO HS [facility] Last Admin: 02/21/18 21:17 Dose: 20 mg - Labs Labs: 02/22/18 06:57 02/22/18 06:57 PT 15.7 SECONDS (9.7-12.2) H 02/22/18 06:57 INR 1.4 02/22/18 06:57 APTT 40 SECONDS (21-34) H 02/22/18 06:57 - Constitutional Appears: Well - Head Exam Head Exam: ATRAUMATIC, NORMAL INSPECTION, NORMOCEPHALIC - Eye Exam Eye Exam: EOMI, Normal appearance, PERRL Pupil Exam: NORMAL ACCOMODATION, PERRL - ENT Exam ENT Exam: Mucous Membranes Moist, Normal Exam - Neck Exam Neck Exam: Full ROM, Normal Inspection. absent: Lymphadenopathy - Respiratory Exam Respiratory Exam: Clear to Ausculation Bilateral, NORMAL BREATHING PATTERN - Cardiovascular Exam Cardiovascular Exam: REGULAR RHYTHM, +S1, +S2. absent: Murmur - GI/Abdominal Exam GI & Abdominal Exam: Soft, Normal Bowel Sounds. absent: Tenderness - Rectal Exam Rectal Exam: NORMAL INSPECTION - Exam Exam: Circumcision, NORMAL INSPECTION - Extremities Exam Extremities Exam: Full ROM, Normal Capillary Refill, Normal Inspection. absent : Joint Swelling, Pedal Edema - Back Exam Back Exam: NORMAL INSPECTION - Neurological Exam Neurological Exam: Alert, Awake, CN II-XII Intact, Normal Gait, Oriented x3 - Psychiatric Exam Psychiatric exam: Normal Affect, Normal Mood - Skin Skin Exam: Dry, Intact, Normal Color, Warm Assessment and Plan (1) Abscess of left foot Status: Acute (2) Acute exacerbation of CHF (congestive heart failure) Status: Acute (3) Cellulitis of left foot Status: Acute (4) Renal insufficiency Status: Acute - Assessment and Plan (Free Text) Assessment: no OM for I and D MSSA on culture possible po rx after OR cultures resulted
--- NOTE | 2018-02-22 13:03 | CT ---
PROCEDURE: CT Angiography Abdomen, Pelvis and Lower Extremity with Contrast HISTORY: PVD COMPARISON: None. TECHNIQUE: Technique: CT angiography of the abdomen, pelvis and bilateral lower extremities performed in the arterial phase of enhancement. Coronal and sagittal reformats, and well as rotating MIP images of the vessels generated at the workstation. Intravenous contrast dose: 150 mL Visipaque 320 Radiation dose: Total exam DLP = 2249.1 mGy-cm. This CT exam was performed using one or more of the following dose reduction techniques: Automated exposure control, adjustment of the mA and/or kV according to patient size, and/or use of iterative reconstruction technique. FINDINGS: CT ANGIOGRAPHY: ABDOMINAL AORTA:: No aneurysm, occlusion or stenosis MAJOR AORTIC BRANCHES: Celiac [place]: Unremarkable. Superior mesenteric artery: Long segment moderate to severe stenosis. Inferior mesenteric artery: Tandem mild to moderate stenoses falling 8 should involuting clot. Renal arteries: Unremarkable. PELVIC ARTERIES: Right Common Iliac: Unremarkable. Right External Iliac: Unremarkable. Right Internal Iliac: Unremarkable. Left Common Iliac: Unremarkable. Left External Iliac: Unremarkable. Left Internal Iliac: Unremarkable. RIGHT LOWER EXTREMITY ARTERIES: Right Common Femoral: Unremarkable. Right Superficial Femoral: Unremarkable. Right Profunda Femoris: Unremarkable. Right Popliteal:Unremarkable. Right Anterior Tibial: Heavy calcific atherosclerosis limits assessment. Right Tibioperoneal Trunk: Heavy calcific atherosclerosis limits assessment. Right Posterior Tibial: Heavy calcific atherosclerosis limits assessment. Right Peroneal: Heavy calcific atherosclerosis limits assessment. Right dorsalis pedis : Heavy calcific atherosclerosis limits assessment. LEFT LOWER EXTREMITY ARTERIES: Left Common Femoral: Unremarkable. Left Superficial Femoral: Unremarkable. Left Profunda Femoris: Unremarkable. Left Popliteal: Unremarkable. Left Anterior Tibial: Heavy calcific atherosclerosis limits assessment. Left Tibioperoneal Trunk: Heavy calcific atherosclerosis limits assessment. Left Posterior Tibial: Heavy calcific atherosclerosis limits assessment. Left [place]onea: Heavy calcific atherosclerosis limits assessment. Left Dorsalis pedis: Patent. NON-ANGIOGRAPHIC ASPECT OF THE EXAM: LOWER THORAX: Cardiomegaly. Small pericardial effusion. Trace right pleural effusion. No focal consolidation. LIVER: Questionable nodular contour. No gross lesion or ductal dilatation. GALLBLADDER AND BILE DUCTS: Contracted gallbladder with wall edema. PANCREAS: Unremarkable. No gross lesion or ductal dilatation. SPLEEN: Unremarkable. ADRENALS: Unremarkable. No mass. KIDNEYS AND URETERS: Too small to characterize left lower pole hypodensity. Left interpolar cortical scarring. No hydronephrosis. No solid mass. STOMACH AND BOWEL: Unremarkable. No obstruction. No gross mural thickening. APPENDIX: Normal appendix. PERITONEUM: Unremarkable. No free fluid. No free air. LYMPH NODES: Prominent lymph nodes in the gastrohepatic ligament, the largest which measures 2.2 x 1.7 cm (series 2, image 51). Prominent retroperitoneal lymph nodes, the largest which is adjacent to the proximal portion of the left common iliac artery measuring 1.7 x 1.4 cm. BLADDER: Unremarkable. REPRODUCTIVE: Unremarkable. BONES: No acute fracture. Nonspecific lucent lesion with thin rim calcification in the proximal left femur measuring 1.7 x 2.1 cm OTHER FINDINGS: None. IMPRESSION: Trace right pleural effusion. Prominent lymph nodes in the gastrohepatic ligament and retroperitoneum as described above. 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 Small to moderate tandem stenoses of the inferior mesenteric artery. Widely patent bilateral iliac, femoral and popliteal arteries. Heavy calcific atherosclerosis limits assessment of the [id number] arteries. The left dorsalis pedis artery is patent. Nonspecific lucent lesion with rim calcification in the proximal left femur as described above. Additional findings as above.
[2018-02-22 16:13] VITALS: BP 164/80; PULSE 64; TEMP 98.5; O2SAT 98
--- NOTE | 2018-02-22 16:22 | VASCLAB ---
STUDY DESCRIPTION: HISTORY: Cellulitis, Left wound. PRIORS: No previous vascular studies. TECHNIQUE: Pulse volume recording waveforms and segmental pressures of bilateral lower extremities at multiple levels were obtained. Ankle Brachial Indices (ABIs) were calculated. Report prepared by AL Sen RIGHT LOWER EXTREMITY: * Brachial artery: Pressure - 159 mmHg. * High thigh: Pressure - >220 mmHg: Ratio -n/c PVR waveform - Pulsatile * Low thigh: Pressure - >220 mmHg: Ratio - n/c PVR waveform: Pulsatile * Calf: Pressure - >220 mmHg: Ratio - n/c PVR waveform: Pulsatile * Posterior tibial Artery: Pressure - >220 mmHg: Ratio - n/c PVR waveform: Pulsatile * Dorsalis pedis Artery: Pressure - >220 mmHg: Ratio - n/c PVR waveform: Pulsatile * Great toe: Pressure - 103 mmHg: Ratio - 0.65 PVR waveform: Pulsatile Ankle brachial index (SHIVANI): n/c LEFT LOWER EXTREMITY: * Brachial artery: Lines in place * High thigh: Pressure - >220 mmHg: Ratio - n/c: PVR waveform - Pulsatile * Low thigh: Pressure - >220 mmHg: Ratio - n/c PVR waveform: Pulsatile * Calf: Pressure - >220 mmHg: Ratio - n/c PVR waveform: Pulsatile * Posterior tibial Artery: Pressure - >220 mmHg: Ratio - n/c PVR waveform: Pulsatile * Dorsalis pedis Artery: Pressure - >220 mmHg: Ratio - n/c PVR waveform: Pulsatile * Great toe: Bandaged foot Ankle brachial index (SHIVANI): n/c OTHER FINDINGS: Right: There was no evidence of hemodynamically significant arterial insufficiency in the right lower extremity. Left: There was no evidence of hemodynamically significant arterial insufficiency in the left lower extremity. IMPRESSION: 1. Ankle brachial indexes are non diagnostic due to possible arterial wall calcification. 2. Based on the arterial PVR waveform analysis, this exam reveals normal arterial perfusion to bilateral lower extremities, at rest.
== END 2018-02-22 17:10 | disposition home or self-care (01) | DRG 277 ==
LOC: C.ER 12:10 → C.9E 15:18 → C.6T 16:47
PROVIDERS: ADMIT Internal Medicine Pulmonary Disease; ATTEND Internal Medicine Pulmonary Disease
DX: L03.116 Cellulitis of left lower limb (principal); L02.612 Cutaneous abscess of left foot; I42.0 Dilated cardiomyopathy; I11.0 Hypertensive heart disease with heart failure; I50.9 Heart failure, unspecified; L85.3 Xerosis cutis; F17.210 Nicotine dependence, cigarettes, uncomplicated; E78.5 Hyperlipidemia, unspecified; E11.9 Type 2 diabetes mellitus without complications; I69.254 Hemiplegia and hemiparesis following other nontraumatic intracranial hemorrhage affecting left non-dominant side; N28.9 Disorder of kidney and ureter, unspecified